=== PATIENT | female | born 1990 | race Caucasian/White ===

== ENCOUNTER 2018-12-06 19:50 | Emergency (ER) | payer BC ==
[2018-12-06] MEDS ORDERED: LIDOCAINE 1% 10 ML VIAL INJ ONE (20:09)
[2018-12-06] MEDS ORDERED: IODOFORM 1/4 INCH 1 EA BTTL TOP ONE (20:10)
--- NOTE | 2018-12-06 20:15 | ED.PDOC ---
History of Present Illness - General Chief Complaint: Skin/Abrasion/Tear Stated Complaint: ingrown hair follicle Time Seen by Provider: 12/06/18 20:11 Source: patient Exam Limitations: no limitations - History of Present Illness Initial Comments: patient comes in today with 2-3 day history of worsening bump on the right portion of her mons. The patient tried to open it herself but had on purulence drained. Patient denies any vaginal discharge, fever, chills nausea or vomiting. She's never had this problem before and has no past medical history. She has not taken anything for pain. Timing/Duration: week, getting worse Severity: moderate Location: genitalia Improving Factors: nothing Worsening Factors: nothing Associated Symptoms: denies symptoms Allergies/Adverse Reactions: Allergies NO KNOWN ALLERGY Allergy (Verified 06/06/16 08:27) Home Medications: Ambulatory Orders Ondansetron [Zofran Odt] 4 mg PO Q6HR PRN #10 tab 06/06/16 Cephalexin Monohydrate [Keflex] 500 mg PO TID #30 cap 12/06/18 Tramadol HCl [Ultram] 50 mg PO Q6HRS PRN #20 tab 12/06/18 Review of Systems - Review of Systems Constitutional: States: no symptoms reported. Denies: chills, fever, weakness EENTM: States: no symptoms reported Respiratory: States: no symptoms reported. Denies: cough, short of breath Cardiology: States: no symptoms reported. Denies: chest pain, palpitations Gastrointestinal/Abdominal: States: no symptoms reported Genitourinary: States: no symptoms reported Skin: States: see HPI Past Medical History (General) - Patient Medical History Hx Seizures: No Hx Stroke: No Hx Dementia: No Hx Asthma: No Hx of COPD: No Hx Cardiac Disorders: No Hx Congestive Heart Failure: No Hx Pacemaker: No Hx Hypertension: No Hx Thyroid Disease: No Hx Diabetes: No Hx Gastroesophageal Reflux: No Hx Renal Disease: No Hx Cancer: No Hx of HIV: No Hx Hepatitis C: No Hx MRSA: No - Vaccination History Hx Tetanus, Diphtheria Vaccination: No Hx Influenza Vaccination: No Hx Pneumococcal Vaccination: No - Social History Hx Tobacco Use: No Hx Chewing Tobacco Use: No Hx Alcohol Use: Yes - occ Hx Substance Use: No Hx Substance Use Treatment: No Hx Depression: No Hx Physical Abuse: No Hx Emotional Abuse: No Hx Suspected Abuse: No - Female History Patient : No Family Medical History - Family History Mother Family History: No Known Living Status: Still Living Physical Exam - Physical Exam General Appearance: Alert, Comfortable, No apparent distress Cardiovascular/Chest: normal peripheral pulses, regular rate, rhythm Respiratory: chest non-tender, lungs clear, normal breath sounds Skin Problem Location: other - 4 cm area of induration, erythema, with central 1 cm of fluctulance right mons Procedures - Incision and Drainage #1 Site: right mons Procedure and Prep: pus drained, other - Hibicleanse prep Blade Size: 11 Procedure Comments: after area cleaned with hibicleanse, 2 cc of lidocaine 1% injected for local anesthesia. 11 blade used to open wound and thick purulence drained with small .5 cm tracking inferiorly. [place] placed and patient tolerated procedure well Departure - Departure Clinical Impression: Abscess Disposition: Discharge to Home or Self Care Condition: Good Departure Forms: ED Discharge - Pt. Copy, Patient Portal Self Enrollment Instructions: DI for Abrasion Referrals: Kyara Mcdonnell NP [Primary Care Provider] - 1-2 Weeks Prescriptions: Tramadol HCl [Ultram] 50 mg PO Q6HRS PRN #20 tab PRN Reason: Pain Cephalexin Monohydrate [Keflex] 500 mg PO TID #30 cap Home Medications: Ambulatory Orders Ondansetron [Zofran Odt] 4 mg PO Q6HR PRN #10 tab 06/06/16 Cephalexin Monohydrate [Keflex] 500 mg PO TID #30 cap 12/06/18 Tramadol HCl [Ultram] 50 mg PO Q6HRS PRN #20 tab 12/06/18 Additional Instructions: follow up in am with PCP for wound repacking/recheck. return to ER for increased pain, fever >100.5, sedation precautions with pain medication
[2018-12-06] MEDS ORDERED: CHLORHEXIDINE GLUCONATE 4 % 15 ML UD TOP ONE (20:16)
[2018-12-06 20:20] VITALS: TEMP 98.5; O2SAT 99
[2018-12-06] MEDS: KETOROLAC TROMETHAMINE INJ 60 MG/2 ML VIAL IM ONE (20:33)
[2018-12-06] MEDS: CEPHALEXIN MONOHYDRATE 500 MG CAP PO ONE (20:33)
[2018-12-06 21:03] VITALS: BP 116/80
== END 2018-12-06 21:00 | disposition home or self-care (01) ==
LOC: ER 19:50
DX: L02.215 Cutaneous abscess of perineum (principal)